=== PATIENT | male | born 1955 | race Caucasian/White ===

== ENCOUNTER 2020-02-17 11:10 | Emergency (ER) | payer MEDICARE ==
[~2020-02-17] VITALS: Ht 180.3 cm; Wt 75.0 kg
[2020-02-17 11:17] VITALS: BP 134/88
[2020-02-17] MEDS ORDERED: TAMS-13 PO (11:23)
[2020-02-17 13:32] LABS: COVID AG,FIA SOURCE NASAL SWAB
== END 2020-02-17 12:40 | disposition home or self-care (01) ==
LOC: EMS 11:14
DX: M79.10 Myalgia, unspecified site (principal); R50.9 Fever, unspecified; Z20.828 Contact with and (suspected) exposure to other viral communicable diseases
CPT/HCPCS: 87426; 99283; U0003